=== PATIENT | female | born 1935 | race African-American/Black ===

== ENCOUNTER 2018-04-23 20:34 | Emergency (ER) | payer MEDICARE ==
[2018-04-23] MEDS ORDERED: Naproxen 500 MG TAB ONE (21:20)
[2018-04-23] MEDS ORDERED: AMOXicillin 250 MG CAP ONE (21:20)
[2018-04-23] MEDS ORDERED: HYDROcodone/Acetaminophen 10/325 mg Tablet ONE (21:20)
== END 2018-04-23 21:25 | disposition home or self-care (01) ==
LOC: MADERS 20:34
DX: K04.7 Periapical abscess without sinus (principal); I10 Essential (primary) hypertension
CPT/HCPCS: 99282

== ENCOUNTER 2023-12-06 13:34 | Emergency (ER) | payer MEDICARE, OTHER ==
[2023-12-06 14:56] LABS: INR-International Normal Ratio 1.2; Prothrombin Time 15.5 sec (12.0-14.7)
[2023-12-06 15:06] LABS: ALT (SGPT) 43 U/L (8-55); AST (SGOT) 88 U/L (5-34); Albumin 3.7 g/dL (3.4-4.8); Alkaline Phosphatase 135 U/L (40-110); Anion Gap 23 mmol/L (10-20); BUN (Urea Nitrogen) 98 mg/dL (9.8-20.1); Calc. Creatinine Clearance 0 mL/min (70-130); Calcium 10.2 mg/dL (7.8-10.44); Carbon Dioxide 18 mmol/L (23-31); Chloride 102 mmol/L (98-107); Estimated GFR 8; Glucose 70 mg/dL (83-110); Magnesium 2.8 mg/dL (1.6-2.6); Potassium 5.4 mmol/L (3.5-5.1); Protein, Total 7.7 g/dL (5.8-8.1); Sodium 138 mmol/L (136-145)
[2023-12-06 15:07] LABS: Troponin I 0.092 ng/mL (< 0.028)
[2023-12-06 15:12] LABS: Hematocrit 39.9 % (36.0-47.0); Hemoglobin 12.4 g/dL (12.0-16.0); Mean Corpuscular Hemoglobin 26.7 pg (27.0-31.0); Mean Corpuscular Volume 86.1 fl (78.0-98.0); Mean Platelet Volume 10.1 fL (7.4-10.4); Platelet Count 171 10x3/uL (130-400); RBC Distribution Width 17.3 % (11.5-14.5); Red Blood Cell (RBC) Count 4.64 mill/uL (4.20-5.40); White Blood Cell (WBC) Count 8.7 10x3/uL (4.8-10.8)
[2023-12-06 15:19] LABS: Band 1 % (5-11); Lymphocytes 5 % (21-51); MDiff Complete? YES; Manual Diff?? YES; Neutrophil 90 % (42-75)
[2023-12-06 15:20] LABS: Monocytes 4 % (0-10); Target Cells SLIGHT = 2-5 cells (100X) (0-1/hpf)
[2023-12-06 15:21] LABS: Platelet Adequacy Comment Appears Adequate
[2023-12-06] MEDS ORDERED: Sodium Chloride 0.9% 1,000 ML ONE (17:37)
[2023-12-06 17:56] LABS: Bilirubin Small (Negative); Blood, Urine Negative (Negative); Glucose, Urine (Dipstick) Negative (Negative); Ketone, Urine Trace mg/dL (Negative); Leukocyte Small (Negative); Nitrite Negative (Negative); Protein, Urine (Dipstick) 30 mg/dL (Neg-Trace); Urobilinogen 0.2 mg/dL (Less than 2)
[2023-12-06 17:57] LABS: Clarity Cloudy (Clear)
[2023-12-06 18:10] LABS: Bacteria/HPF 1+ HPF (None Seen); CAUTI Indications for Culture Dysuria,urgency,freq; RBC/HPF None Seen HPF (0-3); Urine Culture Reflex No No
[2023-12-06 18:12] LABS: Troponin I 0.093 ng/mL (< 0.028)
[2023-12-06] MEDS ORDERED: cefTRIAXone (ROCEPHIN) 1 GM VIAL ONE (19:34)
[2023-12-06] MEDS ORDERED: Sodium Chloride 0.9% 100 ML ONE (19:35)
== END 2023-12-06 20:15 | disposition home or self-care (01) ==
LOC: MADERS 13:34
DX: I48.91 Unspecified atrial fibrillation (principal); I12.9 Hypertensive chronic kidney disease with stage 1 through stage 4 chronic kidney disease, or unspecified chronic kidney disease; N18.4 Chronic kidney disease, stage 4 (severe); J18.9 Pneumonia, unspecified organism; E86.0 Dehydration; Z79.82 Long term (current) use of aspirin; Z79.899 Other long term (current) drug therapy
CPT/HCPCS: 36415; 74176; 80053; 81001; 83735; 84484; 85025; 85610; 85730; 87635; 87804; 93005; 94760; 96361; 96365; J0696; J3490; J7050

== ENCOUNTER 2023-12-10 14:13 | Emergency (ER) | payer OTHER ==
[2023-12-10] MEDS ORDERED: Cefepime 2 GM VIAL ONE (15:10)
[2023-12-10] MEDS ORDERED: Sodium Chloride 0.9% 100 ML ONE (15:11)
[2023-12-10] MEDS ORDERED: Sodium Chloride 0.9% 250 ML 250 ML ONE (15:11)
[2023-12-10] MEDS ORDERED: Calcium Gluc 4.6 MEQ/10 ML (100 MG/ML) ONE (15:11)
[2023-12-10] MEDS ORDERED: Vancomycin 1 GM VIAL ONE (15:11)
[2023-12-10] MEDS ORDERED: Sodium Chloride 0.9% 0 ML ONE (15:11)
[2023-12-10] MEDS ORDERED: Sodium Chloride 0.9% 1,000 ML ONE ×2 (15:11→16:29)
[2023-12-10 15:22] LABS: Troponin I 0.118 ng/mL (< 0.028)
[2023-12-10 15:25] LABS: ALT (SGPT) 102 U/L (8-55); AST (SGOT) 223 U/L (5-34); Albumin 3.1 g/dL (3.4-4.8); Alkaline Phosphatase 162 U/L (40-110); Anion Gap 29 mmol/L (10-20); Bilirubin, Total 1.2 mg/dL (0.2-1.2); Calc. Creatinine Clearance 0 mL/min (70-130); Calcium 9.5 mg/dL (7.8-10.44); Carbon Dioxide 10 mmol/L (23-31); Chloride 101 mmol/L (98-107); Estimated GFR 5; Globulin 3.9 g/dL (2.4-3.5); Glucose 77 mg/dL (83-110); Potassium 5.5 mmol/L (3.5-5.1); Sodium 134 mmol/L (136-145)
[2023-12-10 15:29] LABS: Anisocytosis SLIGHT = 6-15 cells (100X) (0-5/hpf); Band 9 % (5-11); Hematocrit 40.1 % (36.0-47.0); Hemoglobin 12.5 g/dL (12.0-16.0); Lymphocytes 1 % (21-51); MDiff Complete? YES; Manual Diff?? YES; Mean Corpuscular HGB CONC 31.2 g/dL (32.0-36.0); Mean Corpuscular Hemoglobin 26.9 pg (27.0-31.0); Mean Corpuscular Volume 86.2 fl (78.0-98.0); Mean Platelet Volume 11.8 fL (7.4-10.4); Monocytes 13 % (0-10); Neutrophil 76 % (42-75); Nucleated RBC (Manual Ct) 1 % (0); Platelet Count 40 10x3/uL (130-400); Polychromasia SLIGHT = 2-3 cells (100X) (0-2/hpf); RBC Distribution Width 17.2 % (11.5-14.5); Reactive Lymphocytes 1 % (0-10); Red Blood Cell (RBC) Count 4.65 mill/uL (4.20-5.40); Target Cells SLIGHT = 2-5 cells (100X) (0-1/hpf); White Blood Cell (WBC) Count 16.4 10x3/uL (4.8-10.8)
[2023-12-10 15:30] LABS: Platelet Adequacy Comment Appears Decreased
[2023-12-10 15:50] LABS: BUN (Urea Nitrogen) 142 mg/dL (9.8-20.1)
[2023-12-10] MEDS ORDERED: Norepinephrine 4 MG/4 ML VIAL ONE (17:10)
[2023-12-10 18:48] LABS: Critical Call Chem-Lactate ERS.JD@1847; Lactic Acid 5.1 mmol/L (0.5-2.2)
== END 2023-12-10 19:15 | disposition short-term general hospital (02) ==
LOC: MADERS 14:13
DX: A41.9 Sepsis, unspecified organism (principal); R65.21 Severe sepsis with septic shock; I48.91 Unspecified atrial fibrillation; E87.20 Acidosis, unspecified; J18.9 Pneumonia, unspecified organism; I10 Essential (primary) hypertension; R41.82 Altered mental status, unspecified; Z79.82 Long term (current) use of aspirin; Z79.899 Other long term (current) drug therapy; Z79.01 Long term (current) use of anticoagulants
CPT/HCPCS: 71045; 80053; 83605; 84484; 85025; 87040; 93005; J0612; 36415; 36556; 87149; 96365; 96366; 96367; 96368; J0692; J3370; J3490; J7030; J7050